=== PATIENT | female | born 1955 | race Caucasian/White ===

== ENCOUNTER → 2016-10-10 | Outpatient (CLI) | payer OTHER ==
[~2016-10-10] VITALS: Ht 167.6 cm; Wt 86.3 kg
[~2016-10-10] MED LIST: ACTONEL150 MG PO; ACTOPLUS MET 11 EAC1; ADVAIRDISKUS; AMITRIPTYLINE H75 M1 PO; DOXYCYCLINE 10100 M1 PO; FLEXERIL PO; GABAPENTIN100 MG PO; GLUCOPHAGE1000 MG PO; METFORMIN HCL500 MG PO; MOBIC15 MG PO; MS CONTIN15 MG PO; MS CONTIN30 MG PO; NEURONTIN 300300 M1 PO; NEXIUM40 MG PO; PERCOCET 5-3251 EACH PO; PREDNISONE 10 M10 MG PO; PRINZIDE 10-121 EACH PO; VITAMIN D 5050000 I1 PO; ZOLOFT100 MG PO; [UNRECOGNIZED DRUG - OTHER] PO
--- NOTE | ~2016-10-10 | HPC ---
[facility] [place] [address] PAIN MANAGEMENT CONSULTATION Name: BILLIE BROOKS Room #: REG [facility].#: [id number] Admission: 10/10/16 Attend Phys: Lloyd Cosme MD Discharge: Date of : 55 Report #: [id number] THIS REPORT FOR: //name// CC: Elisa Watts BURLAPPER David Cosme DATE OF SERVICE: 10/10/2016 FOLLOWUP COMPLAINT: "I am doing okay". FOLLOWUP HISTORY: The patient is a 61-year-old female who has been followed in the pain clinic because of chronic pain and failed back syndrome. She finds that her pain level is a 3. She still has quite a number of family members living with her. Her grandchild has . The child was a number of months old. He had a very rare genetic disease. Only 10 have been known to have this disease. Her son is still having some difficulty accepting this fact. PHYSICAL EXAMINATION: Blood pressure is 130/93, pulse 88, respiratory rate 16, room air saturation 96%. Height 5 feet 6 inches, weight is 86 kilograms. BMI is 30. The patient has not fallen since we saw her last. She continues to have pain and discomfort in her neck as well as pain and discomfort in the lower portion of her back with pain radiating down into her feet. She notes the pain is exacerbated by walking and prolonged standing. Finds that the pain is improved with use of music therapy as well as with lying down. She continues to smoke cigarettes. IMPRESSION: Chronic pain, status post failed back syndrome. RECOMMENDATIONS: We discussed treatment options with the patient. We will continue with her current medical regimen. Given that she has children in her home, she maintains her medications in a guarded place. She will continue to try and decrease her tobacco use. We will continue with her current medications. A script for her medications has been renewed. She will call us if she has any problems with her medications. We would like to thank you for letting us participate in her care. We hope she continues to improve. By: [id number] Lloyd Cosme MD /nt
[2016-10-10 10:21] VITALS: BP 130/93
== END | disposition home or self-care (01) ==
LOC: PAIN 09-30 09:45
DX: M96.1 Postlaminectomy syndrome, not elsewhere classified (principal); F11.20 Opioid dependence, uncomplicated; F17.210 Nicotine dependence, cigarettes, uncomplicated

== ENCOUNTER → 2017-01-07 | Outpatient (CLI) | payer OTHER ==
[~2017-01-07] VITALS: Ht 165.1 cm; Wt 88.0 kg
[~2017-01-07] MED LIST changes: +AMITRIPTYLINE H75 M2 PO
[2017-01-07 10:43] VITALS: BP 148/90
== END | disposition home or self-care (01) ==
LOC: PAIN 06:52
DX: G89.4 Chronic pain syndrome (principal); M96.1 Postlaminectomy syndrome, not elsewhere classified; F11.20 Opioid dependence, uncomplicated; F17.200 Nicotine dependence, unspecified, uncomplicated; Z79.899 Other long term (current) drug therapy

== ENCOUNTER → 2017-04-08 | Outpatient (CLI) | payer OTHER ==
[~2017-04-08] VITALS: Ht 165.1 cm; Wt 92.1 kg
--- NOTE | ~2017-04-08 | HPC ---
[facility] [place] [address] PAIN MANAGEMENT CONSULTATION Name: BILLIE BROOKS Room #: REG [facility].#: [id number] Admission: 04/08/17 Attend Phys: Lloyd Cosme MD Discharge: Date of : 55 Report #: [id number] THIS REPORT FOR: //name// CC: Elisa Watts MEDICAL PHOTOGRAPHER David Cosme DATE OF SERVICE: 04/08/2017 FOLLOWUP COMPLAINT: Here for medications. FOLLOWUP HISTORY: The patient is a 62-year-old female who has been followed in the pain clinic because of chronic pain associated with failed back syndrome. She rates her pain as a 6/10 today. Pain is worse with standing, walking and activities of daily living. She has been experiencing a new knife-like pain, which radiates into different locations. PHYSICAL EXAMINATION: VITAL SIGNS: Blood pressure 160/85, pulse 92, respiratory rate 14, room air saturation 94%. Height 5 feet 5 inches, weight 203 pounds, BMI is 33. The patient has not fallen since we saw her last. She continues to have pain and discomfort in her low back and down into her legs. As you recall she is status post failed back syndrome. IMPRESSION: Chronic pain, status post failed back syndrome. RECOMMENDATIONS: We will continue with her current medical regimen of MS Contin, Elavil and Percocet. A script for her medications have been written. She will follow up in the future as needed. She states that she continues to keep her medications in a controlled environment. By: [id number] Lloyd Cosme MD /PMT
[2017-04-08 10:52] VITALS: BP 160/85
== END | disposition home or self-care (01) ==
LOC: PAIN 07:20
DX: M96.1 Postlaminectomy syndrome, not elsewhere classified (principal); Z68.33 Body mass index [BMI] 33.0-33.9, adult; G89.29 Other chronic pain; F17.210 Nicotine dependence, cigarettes, uncomplicated

== ENCOUNTER → 2017-07-08 | Outpatient (CLI) | payer OTHER ==
[~2017-07-08] VITALS: Ht 165.1 cm; Wt 91.3 kg
[~2017-07-08] MED LIST changes: +GLIPIZIDE ER2.5 MG PO; +MEDROLDOSEPACK PO
--- NOTE | ~2017-07-08 | HPC ---
[facility] [place] [address] PAIN MANAGEMENT CONSULTATION Name: BILLIE BROOKS [id number] Admission: 07/08/17 Attend Phys: Lloyd Cosme MD Discharge: Date of : 55 Report #: [id number] THIS REPORT FOR: //name// CC: Elisa Cosme DATE OF SERVICE: 07/08/2017 FOLLOWUP COMPLAINT: "I am having some weakness in my right hand and I have weakness in my left hand." FOLLOWUP HISTORY: The patient is a 62-year-old female who has been followed in the pain clinic for quite a number of years. She suffers from failed back syndrome. She finds that opioid medications continue to be helpful. She is taking her medication as prescribed. She states that she is having some weakness in the right hand. She recalls trying to open a pop bottle; after turning the lid, she noticed a popping sensation in her right hand. Since that time, she has noticed that there is some weakness in this area. It is right in the wrist where most of the discomfort and weakness is. She also has some weakness in the left hand. She states that they have evaluated the problem in the antecubital area but it continues to be a problem. She continues to watch over her grandchildren. There are quite a number of them who live in her home. She states that she keeps her medications in a guarded area. We discussed the possible complications associated with opioid use and possibility of addiction and tolerance. PHYSICAL EXAMINATION: VITAL SIGNS: Blood pressure 147/79, pulse 80, respiratory rate 18, and room air saturation 94%. HEENT: Unremarkable. NECK: The patient states that she has had some surgeries on her neck in the past. EXTREMITIES: Complains of pain with discomfort radiating down in the left forearm with hyperesthesia. Also complains of some weakness in her right hand after trying to untighten the lid on a bottle of pop. The patient has noticed some swelling in the wrist area. Notes some discomfort in the area of the metatarsals between the index and middle finger. Palpation in this area can cause some soreness. The patient complains of some weakness in the left hand as well. 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 IMPRESSION: 1. Some pain in the right hand with weakness as well as pain in the left hand. 2. Use of tobacco. [facility] [address] [place] [address] PAIN MANAGEMENT CONSULTATION Name: BILLIE BROOKS Room #: REG [facility]#: [id number] Admission: 07/08/17 Attend Phys: Lloyd Cosme MD Discharge: Date of : 55 Report #: [id number] 3. Sleep apnea. 4. Chronic pain, status post failed back syndrome. 5. Cervical radicular pain, status post 3 neck surgeries - cervical fusion in 08/1996 and 08/1998. 6. History of osteomyelitis, low back area. RECOMMENDATIONS: We discussed treatment options with the patient. We discussed chronic tobacco use. She is no longer using oxygen at home. She continues to use a CPAP machine. We discussed the pathophysiology of COPD and the problems with chronic use of tobacco. We also discussed the use of opioid medications. Recommending that the patient keep her medications in a locked facility given that she has children at home. We discussed the use of a Medrol Dosepak to help with the pain in her right arm. Again, she feels that given the number of surgeries she has, cervical epidural steroid injections are not an option at this juncture. The patient will continue to work at decreasing use of tobacco. We would like to thank you for letting us participate in her care. We hope she continues to improve. <ELECTRONICALLY SIGNED> By: Lloyd Cosme MD 07/10/17 0806 [id number] Lloyd Cosme MD /[facility]
[2017-07-08 10:13] VITALS: BP 147/79
== END ==
LOC: PAIN 06:38
DX: G89.29 Other chronic pain (principal); M54.12 Radiculopathy, cervical region; M79.641 Pain in right hand; M79.642 Pain in left hand; F11.90 Opioid use, unspecified, uncomplicated; G47.33 Obstructive sleep apnea (adult) (pediatric); Z98.890 Other specified postprocedural states; Z87.39 Personal history of other diseases of the musculoskeletal system and connective tissue

== ENCOUNTER → 2017-10-07 | Outpatient (CLI) | payer OTHER ==
[~2017-10-07] VITALS: Ht 165.1 cm; Wt 87.1 kg
--- NOTE | ~2017-10-07 | HPC ---
[facility] [address] [place] [address] PAIN MANAGEMENT CONSULTATION Name: BILLIE BROOKS Room #: REG [facility].#: [id number] Admission: 10/07/17 Attend Phys: Lloyd Cosme MD Discharge: Date of : 55 Report #: [id number] THIS REPORT FOR: //name// CC: Elisa Watts SYSTEMS SPECIALIST David Cosme DATE OF SERVICE: 10/07/2017 FOLLOWUP COMPLAINT: Here for medication refills and the meds are working fine. He did not have any side effects. FOLLOWUP HISTORY: The patient is a 62-year-old female who has been followed in the pain clinic for quite a number of years. As you recall, she suffers from failed back syndrome. She has continued to have fine opioid medications helpful. She is taking the medication as prescribed. States that she keeps her medications locked up. She does have some grandchildren who live with her at home. She finds that these medications enable her to engage in activities of daily living. She is having some pain and discomfort on the left side. She was walking into her house. Her had placed an item and unforeseen area. She tripped. She fell and hit her shoulder as well as her left side. She is having some difficulty in lifting this her arm above her head. She states that she is going to see another 6 physician possibly a surgeon in regards to this. She notes that the pain is quite problematic. ALLERGIES: No known drug allergies. MEDICATIONS: Glyburide, glipizide 2.5 mg daily, metformin 500 mg b.i.d., Percocet 5/325 mg one p.o. q.4-6 hours p.r.n. pain, morphine ER (MS Contin 15 mg 1 p.o. at bedtime), amitriptyline 75 mg at bedtime, Nexium 40 mg. PAIN CLINIC ASSESSMENT: 1. The patient does have some arthritic changes in the lower portion of her back. She has had back surgery. 2. Height 5 feet 5 inches, weight 192 pounds, BMI is 32. 3. Vital signs: Blood pressure 126/80, pulse 85, respiratory rate 16, room air saturation is 95%. 4. Pain intensity. 5. In the right hand and two in the left arm. IMPRESSION: Fall risk. The patient fell while walking to her house. Her place an item and the unforeseen area. She tripped and fell on this. She has been using a walking cane. Blood thinner use. The patient does not [place] [address] PAIN MANAGEMENT CONSULTATION Name: BILLIE BROOKS Room #: REG [facility]#: [id number] Admission: 10/07/17 Attend Phys: Lloyd Cosme MD Discharge: Date of : 55 Report #: [id number] 1. History of hypertension. The patient is being treated for hypertension. 2. Opioid therapy. The patient does have an opioid contract, which she has signed with the pain clinic. 3. Risk assessment tool. 4. Functional assessment. 5. Recreational drug use, denies. 6. Tobacco: The patient is a current tobacco smoker and does continue to smoke. 5. Alcohol. Denies use of alcoholic beverages on a very basis. IMPRESSION 1. Pain in the left side after a fall at home injuring her left arm and left side. The patient is going to follow up with her physician for possible treatment of this. We discussed the possibility of frozen shoulder syndrome if she does not continue to increase range of motion of this lamina. 2. Tobacco use. We would recommend that the patient's decrease use of tobacco. 3. Sleep apnea. 4. Chronic pain status post failed back syndrome. 5. Cervical radicular pain status post 3 neck surgeries in the past with fusion and 2000 and fusion in 1996 and 1998. 6. History of osteomyelitis low back area. RECOMMENDATIONS: We discussed treatment options with the patient. We will continue with her current medication regimen. She will follow up with her orthopedic doctor regarding treatment for the left shoulder. We explained to her the need to get this joint in motion. The possibility of frozen shoulder definitely could develop. She also has smoking. We reminded her that decreasing smoking would be beneficial and possibly decrease some of the problems she is having it with her pain. The patient will continue use of her CPAP machine. She will call us if she has any problems with her medications. We would like to thank you for letting us participate in her care. We hope she continues to improve. By: [id number] Lloyd Cosme MD /REKHA
[2017-10-07 11:09] VITALS: BP 126/80
== END ==
LOC: PAIN 07:02
DX: M79.602 Pain in left arm (principal); F17.200 Nicotine dependence, unspecified, uncomplicated; G47.30 Sleep apnea, unspecified; G89.29 Other chronic pain; M54.12 Radiculopathy, cervical region

== ENCOUNTER → 2018-01-08 | Outpatient (CLI) | payer OTHER ==
[~2018-01-08] VITALS: Ht 165.1 cm; Wt 84.7 kg
--- NOTE | ~2018-01-08 | HPC ---
[facility] [place] [address] [place] [address] PAIN MANAGEMENT CONSULTATION Name: BILLIE BROOKS Room #: REG [facility].#: [id number] Admission: 01/08/18 Attend Phys: Lloyd Cosme MD Discharge: Date of : 55 Report #: [id number] THIS REPORT FOR: //name// CC: Elisa Cosme DATE OF SERVICE: 01/08/2018 FOLLOWUP COMPLAINT: Here for medication renewal. FOLLOWUP HISTORY: The patient is a 63-year-old female who has been followed in the pain clinic for quite a number of years. As you recall, she has failed back syndrome. Continues to have medications to help with her condition. Feels that her medications enable her to engage in activities, she would not be able to without their use. She is taking her medications as prescribed. She has had no complication from the medications themselves. Continues to smoke. She is still trying to decrease her smoking habit. Keeps her medications in a guarded area. Recently found a lesion on her pancreas and a cyst on her kidney. Continues with left shoulder, low back, right thigh, left leg, upper back and stomach discomfort. She rates her pain as a 4/10. ALLERGIES: No known drug allergies. MEDICATIONS: Glyburide 2.5 mg daily, metformin 500 mg b.i.d., Percocet 5/325 one p.o. q.4-6 hours., morphine ER 15 mg 1 at bedtime, amitriptyline 75 mg, Nexium 40 mg. PAIN CLINIC ASSESSMENT: 1. The patient does have some arthritic changes in the lower portion of her back. She has had back surgery. 2. Height 5 feet 5 inches, weight 186 pounds, BMI is 31.1. 3. Vital signs: Blood pressure 131/86, pulse 89, respiratory rate 16, room air saturation 96%. 4. Pain intensity 10/20. 5. Fall risk. The patient has not fallen in the last 3 months. The patient does walk with use of a crutch. 6. Blood thinner: The patient is not on a blood thinning medication. 7. History of hypertension. The patient is being treated for hypertension. 8. Opioid therapy greater than 6 weeks. The patient is on an opioid contract and gets her medication from one source. 9. Risk assessment tool. 10. Functional assessment tool. 11. Recreational drug use. The patient denies use of recreational drugs. 12. Tobacco: The patient continues to smoke 2 packs of cigarettes per day, has smoked [address] [place] [address] PAIN MANAGEMENT CONSULTATION Name: BILLIE BROOKS Room #: REG [facility]#: [id number] Admission: 01/08/18 Attend Phys: Lloyd Cosme MD Discharge: Date of : 55 Report #: [id number] 13. Alcohol use. Denies use of alcoholic beverages. PHYSICAL EXAMINATION: GENERAL: The patient is a well-developed white female, appears her stated age. She is alert and oriented x 3. Speech is fluent. HEENT: Normocephalic, atraumatic. Extraocular eye muscles intact. Sclerae nonicteric. Hearing within normal limits. NECK: Without adenopathy. HEART: Regular rate. LUNGS: Generally clear. Patient clears her throat and lungs with some decreased breath sounds in the lower lung carrasco. ABDOMEN: Protuberant. MUSCULOSKELETAL: Muscle strength in the upper extremity generally 5/5 for the major muscle groups in the upper extremity. Lower extremity muscle strength judged to be 5/5 for the major muscle groups. The patient walks with an antalgic gait. She leans somewhat to the right with her crutch in her right hand. Complains of low back pain. Rates it as a 4 while standing. IMPRESSION: 1. Chronic low back pain status post failed back syndrome. 2. History of hypertension. 3. Use of tobacco. 4. Sleep apnea. 5. Cervical radicular pain status post three surgeries in the past with fusion in 1999, 1998 and 1996. 6. History of osteomyelitis in low back area. 7. Possible frozen shoulder, left. RECOMMENDATIONS: We discussed treatment options with the patient. She feels that her medications are working reasonably well. She continues to keep them in a guarded area. She does have some young children in their area. She finds that the medications help her to stay active. She has taken the medication as prescribed. She is aware of the problems with opioid medications. She has watched the media interactions. She is aware that narcotics can cause addiction as well as tolerance. Overall, she feels that her medications are working reasonably well. She would like to continue their use. Does have pain in her left shoulder. Possible development of frozen shoulder. She will continue using her CPAP machine. She will call us if she has any problems with her medications. We would like to thank you for letting us participate in her care. We hope she continues to improve. By: [id number] Lloyd Cosme MD /silvia
[2018-01-08 10:48] VITALS: BP 131/86
== END ==
LOC: PAIN 07:13
DX: M54.5 Low back pain (principal); G89.29 Other chronic pain; M54.2 Cervicalgia; I10 Essential (primary) hypertension; G47.33 Obstructive sleep apnea (adult) (pediatric); F17.201 Nicotine dependence, unspecified, in remission

== ENCOUNTER → 2018-02-26 | Outpatient (CLI) | payer OTHER ==
[~2018-02-26] VITALS: Ht 165.1 cm; Wt 84.2 kg
[2018-02-26 12:36] VITALS: BP 146/100
== END ==
LOC: PAIN 07:20
DX: M54.2 Cervicalgia (principal); M54.5 Low back pain; M79.651 Pain in right thigh; G89.29 Other chronic pain; Z79.899 Other long term (current) drug therapy

== ENCOUNTER → 2018-04-07 | Outpatient (CLI) | payer OTHER ==
[~2018-04-07] VITALS: Ht 165.1 cm; Wt 86.2 kg
--- NOTE | ~2018-04-07 | HPC ---
[facility] [place] [address] PAIN MANAGEMENT CONSULTATION Name: BILLIE BROOKS Room #: REG [facility].#: [id number] Admission: 04/07/18 Attend Phys: Lloyd Cosme MD Discharge: Date of : 55 Report #: [id number] THIS REPORT FOR: //name// CC: Elisa Watts FOOD TASTER [place] Cosme DATE OF SERVICE: 04/07/2018 FOLLOWUP COMPLAINT: "The medications are working pretty well." FOLLOWUP HISTORY: The patient is a 63-year-old female who has been followed in the Pain Clinic for quite a number of years. As you know, she has chronic back pain. She has had failed back syndrome with continued pain. As you may recall, she has recently been diagnosed with a large mass at the head of her pancreas. It is thought to be pancreatic cancer. She has been undergoing therapy at this juncture. She is undergoing a special Treatment with a new device, which she states would hopefully kill some of the burgeoning cancer cells. Overall, she feels that things are going reasonably well with her pain medicines. We have started her on an elevated dose at the last visit. The patient was going to return to the Pain Clinic if her pain became more problematic. Overall, things are going reasonably well and we will write for medications for the next few months. ALLERGIES: No known drug allergies. CURRENT MEDICATIONS: OxyContin 5/325 one p.o. q. 4-6 hours p.r.n. pain, morphine sulfate 30 mg b.i.d., amitriptyline 75 mg at bedtime, metformin 500 mg, Nexium 40 mg daily. PAIN CLINIC ASSESSMENT/PQRS: 1. History of osteoarthritis: The patient has some arthritic changes in her lower back since surgery. She has not been treated for rheumatoid arthritis. 2. Height 5 feet 5 inches, weight 190 pounds, BMI is 31.6. 3. Vital signs: Blood pressure 155/93, pulse 76, respiratory rate 18, room air saturation 95%. 4. Pain intensity: 08/22. 5. Fall risk: The patient has not fallen in the last 3 months. The patient does walk with a cane. 6. Blood thinner: The patient is not on blood thinning medications at this juncture. 7. History of hypertension: The patient is being treated for hypertension. 8. Opioid therapy: The patient has received her medications through the Pain Clinic since 2015. 9. Risk assessment tool: [place] [address] PAIN MANAGEMENT CONSULTATION Name: BILLIE BROOKS Room #: REG [facility]#: [id number] Admission: 04/07/18 Attend Phys: Lloyd Cosme MD Discharge: Date of : 55 Report #: [id number] 10. Functional assessment tool. 11. Recreational drug use: The patient denies use of recreational drugs. 12. Tobacco: The patient continues to smoke heavily, approximately 2 packs per day and has smoked for 40 years. 13. Alcohol: The patient denies frequent use of alcoholic beverages. PHYSICAL EXAMINATION: GENERAL: The patient is a well-developed, well-nourished white female. Appears her stated age. She is slightly obese. She is awake, alert, and oriented x 3. HEENT: Normocephalic, atraumatic. Extraocular eye muscles intact. Sclerae nonicteric. Mucous membranes are moist. The patient has a headrest on. I think she is undergoing chemotherapy and beginning to loose some of her hair. NECK: Without adenopathy or JVD. ABDOMEN: The patient has a special mesh item on her abdominal area with an attachment to a computer of some sort. States that this helps to kill the pancreatic cells. MUSCULOSKELETAL: The patient has some discomfort in her shoulders. Low back pain continues to be problematic from her previous surgeries. The patient does walk with an antalgic gait. Muscle strength in the upper extremity judged to be 5-/5 for the major muscle groups. IMPRESSION: 1. Chronic back pain with most likely development of pancreatic cancer at the head of the pancreas. 2. History of pain in the left arm after a fall. 3. Chronic tobacco use. 4. Sleep apnea. 5. Chronic pain, status post failed back syndrome. 6. Cervical radiculopathy, status post 3 cervical surgeries in the past, fusion in 1999, fusion in 1996, and fusion in 1998. 7. History of osteomyelitis in the low back area. RECOMMENDATIONS: We discussed treatment options with the patient. At this juncture, she feels that her current medications are working reasonably well. We will continue with her medications. She will follow up with the Pain Clinic as needed. If her pain starts to become more problematic secondary to recurrence or worsening of her cancer, she will be reevaluated in the Pain Clinic. The patient may be a candidate for a celiac plexus block in the future should her pain become quite problematic. We would like to thank you for letting us participate in her care. We hope she continues to improve. <ELECTRONICALLY SIGNED> By: Lloyd Cosme MD 04/26/18 1124 [id number] Lloyd Cosme MD /nt
[2018-04-07 09:18] VITALS: BP 155/93
== END ==
LOC: PAIN 06:41
DX: M54.2 Cervicalgia (principal); M54.5 Low back pain; M25.512 Pain in left shoulder; G89.29 Other chronic pain; R10.9 Unspecified abdominal pain; M79.651 Pain in right thigh; Z79.899 Other long term (current) drug therapy

== ENCOUNTER → 2018-10-15 | Outpatient (CLI) | payer OTHER ==
[~2018-10-15] VITALS: Ht 165.1 cm; Wt 75.0 kg
[~2018-10-15] MED LIST changes: +LISINOPRIL10 MG PO; +MS CONTIN 30 MG30 M1 PO
[2018-10-15 10:05] VITALS: BP 149/91
[2018-10-15 10:07] VITALS: BP 149/91
--- NOTE | 2018-10-15 10:25 | NUR ---
Pain Clinic Assessment: 1. History of Osteoarthritis: Not Applicable History of Rheumatoid Arthritis: Not Applicable 2. Height: 5 ft. 5 in. 165.1 cm. Weight: 165.4 lb. oz. 75.025 kg. Patient's BMI: 27.5 3. Vital Signs: BP: 149/91 Pulse: 92 Resp: 16 Temp: 02 Sat: 96 ECG Mon: 4. Pain Intensity: 2 5. Fall Risk: Dizziness: N Needs help standing or walking: Y Fallen in the last 3 months: N Fall risk comments: 6. Patient on Blood Thinner: None 7. History of Hypertension: Y 8. Opioid Therapy greater than 6 weeks: Y Opiate Contract Signed: 12/31/15 9. Risk Assessment Tool Provided: Opioid Risk Tool 10. Functional Assessment Tool: 11. Recreational Drug Use: Never Drug Type: Tobacco Use: Current Every Day Smoker Tobacco Type: Amount or Packs/day: How Many Years: Alcohol Use: No Frequency: Quant:
--- NOTE | 2018-10-18 11:35 | HPC ---
[facility] [address] [place] [address] PAIN MANAGEMENT CONSULTATION Name: BILLIE BROOKS [facility] [id number] Admission: 10/15/18 ������������������ Attend Phys: Franchesca Granados Discharge: ������������������ Date of : 55 Report #: [id number] THIS REPORT FOR: //name// CC: Franchesca Granados Elisa Mac DATE OF SERVICE: 10/15/2018 CHIEF COMPLAINT: Failed back syndrome and pancreatic cancer. HISTORY OF PRESENT ILLNESS: This is a very pleasant 63-year-old female who returns to the pain clinic today for refill of her medication management. She tells me that she is currently undergoing radiation therapy. She has had 22 treatments and still has she thinks at least 7 left. She is unsure of the number. She tells me that she is feeling fairly good from that except that she is extremely tired. She is not having any nausea, vomiting, diarrhea. She tells me at this time she does not have her Novac[employer] device on that she was using for her treatment. She tells me when having that off she is having some increase in back pain. She is unsure why that does help, but she says that her back pain has increased since she has had that machine off. Her pain score today is 2/10 using her medications. Most of her pain is in her low back, but she does have pain in her shoulder and thighs and of course her stomach area from her cancer. She tells me walking, standing and eating make her pain worse. Medication, music therapy and lying down help relieve some of her medications. ALLERGIES: No known drug allergies. CURRENT LIST OF MEDICATIONS: Elavil 75 mg at bedtime, lisinopril 10 mg daily, oxycodone 5/325 p.r.n., morphine sulfate 30 mg b.i.d., metformin 500 mg b.i.d., Nexium 40 mg daily. PQRS: 1. She has a history of arthritic changes in her lower back. She is not being treated for rheumatoid arthritis. 2. Height is 5 feet 5 inches, weight is 165, BMI is 27. 3. Vital signs: Blood pressure 149/91, pulse is 92, respirations 16, oxygen sat is 96. 4. Pain score is 2/10. 5. The patient denies dizziness, does not need help walking or standing, has not fallen in the last 3 months. 6. The patient is not on any blood thinners. 7. She does take medicines for hypertension. 8. Opioid therapy is greater than 6 weeks; therefore, an opiate signed contract is in the chart. Her risk assessment tool is low. Her functional assessment is low as well. The patient denies any recreational drug use. She is a current smoker [place] [address] PAIN MANAGEMENT CONSULTATION Name: BILLIE BROOKS Room #: REG [facility].#: [id number] Admission: 10/15/18 ������������������ Attend Phys: Franchesca Granados Discharge: ������������������ Date of : 55 Report #: [id number] PHYSICAL EXAMINATION: GENERAL: This is a well-developed, well-nourished white female who appears her stated age. She is alert and orientated today. Today, she is wearing a turban on her head due to her loss of her hair. HEENT: Normocephalic, atraumatic. Extraocular eye muscles are intact. Mucous membranes are moist. ABDOMEN: She does complain of some tenderness and reddened area from when she had her treatment attached to her abdomen for her pancreatic cancer. She tells me this is slowly healing. MUSCULOSKELETAL: Complains of low back pain. She does have an antalgic gait with her walk. Her muscle strength in her upper extremities is 5/5 in all major muscle groups. Her lower extremity strength judged to be 4/5 in all major muscle groups and tone. ASSESSMENT: 1. Chronic back pain. 2. Pancreatic cancer with ongoing radiation treatment. 3. Chronic tobacco use. 4. Sleep apnea. 5. Chronic pain, status post failed back surgery. 6. Cervical radiculopathy, status post 3 cervical surgeries. 7. History of osteomyelitis in her lower back. We reviewed the fact that opiate medications are being used to provide analgesia adequate to support activities of daily living, not attempting to achieve a specific pain score on the 0-10 Visual Analog Scale. The current opiate medications are providing sufficient analgesia to allow the patient to participate in activities of daily living. The patient is not exhibiting any aberrant behavior suggestive of drug diversion. The patient is not having any adverse reactions to medications. The patient is not suffering from daytime somnolence or mental acuity changes. The patient is managing opiate-induced constipation with appropriate [id number] agents and dietary considerations. The patient was counseled on concern for caution with operating a motor vehicle while using opiate medications. A physical exam was performed and the patient's functional status was evaluated. All patients with back pain were advised against the bed rest greater than 4 days and were advised to return to normal activities. Pain score assessment was noted and the treatment plan was reviewed with the patient. All current medications, both prescribed and OTC were reviewed and reconciled on the electronic medical record. Tobacco screening was accomplished and smoking cessation was advised when indicated. BMI was noted and diet/exercise modification was recommended for all patients following outside normal parameters. [address] [place] [address] PAIN MANAGEMENT CONSULTATION Name: BILLIE BROOKS Room #: [facility]#: [id number] Admission: 10/15/18 ������������������ Attend Phys: Franchesca RENAE Granados Discharge: ������������������ Date of : 55 Report #: [id number] I reviewed with the patient today their responsibilities to safeguard prescription medications, reviewed their responsibility to utilize medications only as prescribed by the physician. They are to seek and receive pain medications only from 1 physician group ( [facility]). They are to use 1 pharmacy and keep the clinic informed if they change pharmacies. Their responsibilities include making followup visits in a timely fashion and to avoid abrupt discontinuation of medication usage. Their responsibilities further include bringing their medications (bottles from the pharmacy with residual pills) to the visit for possible confirmation of pill counts and the patient understands it is their responsibility to submit to random drug screens to ensure both that the medications prescribed are present, and that no other controlled substances are present. All prescriptions provided today were generated electronically. PLAN: 1. We discussed treatment options with the patient today. She tells me that she is doing reasonably well with her current medication regimen, still continues her cancer treatments, at this time it is radiation and having no side effects from her medications from her opioids that she is aware of. She denies any constipation issues or somnolence. 2. Scripts given today for MS Contin 30 mg b.i.d. and oxycodone 5/325, #120 as well as amitriptyline 75 mg 1 at bedtime. This places her at the 90 morphine milliequivalent per the CDC guidelines. Therefore we have given her 3 months of these medications. The patient is seen with Dr. Cosme today who collaborated care. The patient will return in 3 months' time. ��������������������������������������������� <ELECTRONICALLY SIGNED> ���������������������������������������� By: Franchesca Granados ��������������������������������������������� 10/18/18 1135 [id number] Franchesca Granados /nt
== END ==
LOC: PAIN 06:57
DX: M54.12 Radiculopathy, cervical region (principal); M54.5 Low back pain; G89.29 Other chronic pain; F17.200 Nicotine dependence, unspecified, uncomplicated; C25.9 Malignant neoplasm of pancreas, unspecified; G47.30 Sleep apnea, unspecified; Z87.39 Personal history of other diseases of the musculoskeletal system and connective tissue

== ENCOUNTER → 2019-01-21 | Outpatient (CLI) | payer OTHER ==
[~2019-01-21] VITALS: Ht 165.1 cm; Wt 69.1 kg
[~2019-01-21] MED LIST changes: +COMPAZINE10 MG PO; +ZOFRAN ODT4 MG DISSOLVE
--- NOTE | ~2019-01-21 | HPC ---
[facility] [place] [address] PAIN MANAGEMENT CONSULTATION Name: BILLIE BROOKS [facility] [id number] Admission: 01/21/19 ������������������ Attend Phys: Lloyd Cosme MD Discharge: ������������������ Date of : 55 Report #: [id number] THIS REPORT FOR: //name// CC: Elisa Cosme DATE OF SERVICE: 01/21/2019 CHIEF COMPLAINT: Here for medication renewal. My cancer has spread. HISTORY: The patient is a 64-year-old female, who has been followed in the pain clinic. As you may recall, she has been diagnosed with pancreatic cancer. She has undergone chemotherapy and radiation treatment. She states that the radiation treatment did not provide much help, her cancer has spread in spite of this. She is now undergoing chemotherapy with a IV infusion for a number of days per week. She is experiencing pain in her hips. She has been using a heating pad on the hip area to help control the pain. She has moved into a new house. As you may recall, she has a number of grandchildren that live with her. The children are living upstairs and she is downstairs. She states that overall that is a better living arrangement than that which she had before. She has hossein out of sitting and watching the birds, smoking her cigarettes, and feels that her pain medications continued to be of benefit. CURRENT MEDICATIONS: Oxycodone 5/325, morphine sulfate 30 mg b.i.d., metformin 500 mg b.i.d., Nexium 400 mg, lisinopril 10 mg daily, and infusion of chemotherapy agent. ALLERGIES: No known drug allergies. PAIN CLINIC ASSESSMENT AND PQRS: 1. The patient has history of osteoarthritic changes in her lower back. She has had back surgery. She is not being treated for rheumatoid arthritis. 2. Pain intensity is 3/10. 3. Fall risk. The patient has not fallen in the last 3 months. 4. Blood thinner. The patient is not on a blood thinning medication. 5. Hypertension. The patient is being treated for hypertension. 6. Opioids greater than 6 weeks. The patient receives her medication from one source, the pain clinic. 7. Risk assessment tool, low for opioid use. 8. Functional assessment tool. 9. Recreational drug use. The patient denies use of recreational drugs. 10. Tobacco: The patient continues to smoke cigarettes and gets great hossein out of this. She is not going to stop smoking at this juncture. 11. Alcohol: The patient denies use of alcoholic beverages. PHYSICAL EXAMINATION: [facility] [address] [place] [address] PAIN MANAGEMENT CONSULTATION Name: BILLIE BROOKS Room #: REG [facility]#: [id number] Admission: 01/21/19 ������������������ Attend Phys: Lloyd Cosme MD Discharge: ������������������ Date of : 55 Report #: [id number] GENERAL: The patient is a well-developed white female. She appears to have lost weight. She is alert and oriented x 3. Height is 5 feet 5 inches, weight is 152 pounds, and BMI is 25.4. VITAL SIGNS: Blood pressure is 146/88, pulse is 84, respiratory rate is 20, and saturation is 98%. HEENT: Normocephalic, atraumatic. Extraocular eye muscles intact. The patient is growing hair, it is about 2 inches long. ABDOMEN: The patient has some pain in the abdominal area as well as in the back. This is secondary to pancreatic cancer. MUSCULOSKELETAL: Strength is 4-/5 in the upper extremities. Lower extremity muscle strength is 4+/5. IMPRESSION: 1. Pancreatic cancer with ongoing radiation treatment, now substitution of chemo for radiation treatment. 2. Chronic back pain. 3. Chronic tobacco use. 4. Sleep apnea. 5. Chronic pain, status post failed back surgery. 6. Cervical radiculopathy, status post 3 cervical surgeries. 7. History of osteomyelitis in the lower back. RECOMMENDATIONS: We have discussed treatment options with the patient. At this juncture, she feels that things have gone as well as could be expected. She feels that her medications are helpful. She rates her pain as a 3/10. We have discussed the options with the patient. Should she need her medications increase, she should call us. Overall, she feels that things are going reasonably well with the amount that she is taking. She states that she is depressed. She states it is very difficult knowing that she is going to within the next few weeks. A script for her medications has been written. She will continue with the amitriptyline 75 mg 1 at bedtime, Percocet 5/325, 120 tablets 1 p.o. q.i.d., and MS Contin 30 mg b.i.d. The patient will call us if she has any concerns. We would like to thank you for letting us to participate in her care. We will continue ____ maintain control of her pain during her illness. ��������������������������������������������� ���������������������������������������� By: ��������������������������������������������� [id number] Lloyd Cosme MD /REKHA
[2019-01-21 10:59] VITALS: BP 146/88
--- NOTE | 2019-01-21 11:24 | NUR ---
Pain Clinic Assessment: 1. History of Osteoarthritis: Not Applicable History of Rheumatoid Arthritis: Not Applicable 2. Height: 5 ft. 5 in. 165.1 cm. Weight: 152.4 lb. oz. 69.128 kg. Patient's BMI: 25.4 3. Vital Signs: BP: 146/88 Pulse: 84 Resp: 20 Temp: 02 Sat: 98 ECG Mon: 4. Pain Intensity: 3 5. Fall Risk: Dizziness: Y Needs help standing or walking: Y Fallen in the last 3 months: N Fall risk comments: 6. Patient on Blood Thinner: None 7. History of Hypertension: Y 8. Opioid Therapy greater than 6 weeks: Y Opiate Contract Signed: 12/31/15 9. Risk Assessment Tool Provided: Opioid Risk Tool 10. Functional Assessment Tool: 11. Recreational Drug Use: Never Drug Type: Tobacco Use: Current Every Day Smoker Tobacco Type: Cigarettes Amount or Packs/day: 1 How Many Years: Alcohol Use: No Frequency: Quant:
== END ==
LOC: PAIN 06:44
DX: Z76.0 Encounter for issue of repeat prescription (principal); M54.12 Radiculopathy, cervical region; C25.9 Malignant neoplasm of pancreas, unspecified; G47.30 Sleep apnea, unspecified; I10 Essential (primary) hypertension; G89.29 Other chronic pain; Z79.891 Long term (current) use of opiate analgesic; Z79.899 Other long term (current) drug therapy; Z79.84 Long term (current) use of oral hypoglycemic drugs; Z72.0 Tobacco use

== ENCOUNTER → 2019-04-22 | Outpatient (CLI) | payer OTHER ==
[~2019-04-22] VITALS: Ht 165.1 cm; Wt 66.7 kg
[~2019-04-22] MED LIST changes: +K-DUR 20 MEQ T20 MEQ PO
--- NOTE | 2019-04-22 09:36 | NUR ---
Pain Clinic Assessment: 1. History of Osteoarthritis: SPINE History of Rheumatoid Arthritis: Not Applicable 2. Height: ft. in. cm. Weight: lb. oz. kg. Patient's BMI: 3. Vital Signs: BP: Pulse: Resp: Temp: 02 Sat: ECG Mon: 4. Pain Intensity: 2 5. Fall Risk: Dizziness: N Needs help standing or walking: N Fallen in the last 3 months: N Fall risk comments: 6. Patient on Blood Thinner: None 7. History of Hypertension: Y 8. Opioid Therapy greater than 6 weeks: Y Opiate Contract Signed: 12/31/15 9. Risk Assessment Tool Provided: 1-LOW 10. Functional Assessment Tool: 11. Recreational Drug Use: Never Drug Type: Tobacco Use: Current Every Day Smoker Tobacco Type: Cigarettes Amount or Packs/day: 1/2 PACK How Many Years: 30 Alcohol Use: No Frequency: Quant:
[2019-04-22 09:38] VITALS: BP 137/78
--- NOTE | 2019-04-22 10:24 | NUR ---
Pain Clinic Assessment: 1. History of Osteoarthritis: SPINE History of Rheumatoid Arthritis: Not Applicable 2. Height: 5 ft. 5 in. 165.1 cm. Weight: 147.0 lb. oz. 66.679 kg. Patient's BMI: 24.5 3. Vital Signs: BP: 137/78 Pulse: 106 Resp: 18 Temp: 02 Sat: 91 ECG Mon: 4. Pain Intensity: 2 5. Fall Risk: Dizziness: N Needs help standing or walking: N Fallen in the last 3 months: N Fall risk comments: 6. Patient on Blood Thinner: None 7. History of Hypertension: Y 8. Opioid Therapy greater than 6 weeks: Y Opiate Contract Signed: 12/31/15 9. Risk Assessment Tool Provided: 1-LOW 10. Functional Assessment Tool: 11. Recreational Drug Use: Never Drug Type: Tobacco Use: Current Every Day Smoker Tobacco Type: Cigarettes Amount or Packs/day: 1/2 PACK How Many Years: 30 Alcohol Use: No Frequency: Quant:
--- NOTE | 2019-05-04 09:44 | HPC ---
[facility] [place] [address] [place] [address] PAIN MANAGEMENT CONSULTATION Name: BILLIE BROOKS [facility] [id number] Admission: 04/22/19 Attend Phys: Lloyd Cosme MD Discharge: Date of : 55 Report #: [id number] THIS REPORT FOR: //name// CC: Elisa Cosme DATE OF SERVICE: 04/22/2019 CHIEF COMPLAINT: Here for medications. I am undergoing chemotherapy again. HISTORY: The patient is a 64-year-old female who has been followed in the pain clinic because of findings of pancreatic cancer. She has had some increased nausea as a result of the new onset of chemotherapy. She has pain in the posterior portion of her legs as well as some pain in the lower portion of her back. She rates her pain today as a 2/10. Notes that with walking, standing, lying down, and certain other activities she can notice some worsening of her pain. Feels that the current use of hydrocodone is helpful. She overall feels that things are going reasonably well. Her has had heart surgery. She is trying to coordinate her hospital visits and treatment with her 's. Does feel somewhat weaken because of the pain and chemotherapy. ALLERGIES: No known drug allergies. CURRENT MEDICATIONS: Oxycodone 5/325, morphine sulfate 30 mg b.i.d., metformin 500 mg b.i.d., Nexium, lisinopril 10 mg, infusion of chemotherapy, amitriptyline 75 mg at bedtime, Zofran 4 mg, and Compazine 10 mg t.i.d. PAIN CLINIC ASSESSMENT AND PQRS: 1. The patient has some osteoarthritic changes in her back. She is not being treated for rheumatoid arthritis. 2. Pain intensity is 2/10. 3. Height 5 feet 5 inches, weight 147 pounds, BMI is 24.5. 4. Vital signs: Pulse is 106, blood pressure 137/78, heart rate 18, room air saturation 91%. 5. Fall history: The patient has not fallen in the last 3 months. 6. Blood thinner. The patient is not on a blood thinning medication. 7. Hypertension. The patient is being treated for hypertension. 8. Opioids greater than 6 weeks. The patient received medication from one source, the pain clinic. 9. Risk assessment tool, low for opioid use. 10. Functional assessment tool . 11. Recreational drug use. The patient denies. 12. Tobacco: The patient continues to smoke one-half pack of cigarettes per day and has smoked for last 30 years. 13. Alcohol. The patient denies frequent use of alcoholic beverages. [address] [address] PAIN MANAGEMENT CONSULTATION Name: BILLIE BROOKS [facility] [id number] Admission: 04/22/19 Attend Phys: Lloyd Cosme MD Discharge: Date of : 55 Report #: [id number] PHYSICAL EXAMINATION: GENERAL: The patient is a well-developed, well-nourished white female. Appears to have lost weight since we saw her last. She is alert and oriented x 3. Her affect is appropriate. Speech is fluent. HEENT: Normocephalic, atraumatic. Extraocular eye muscles intact. Sclerae nonicteric. Mucous membranes are moist. HEART: Regular rate. ABDOMEN: The patient does have some abdominal pain that radiates from the front to the back because of pancreatic cancer. MUSCULOSKELETAL: Has pain and discomfort in the lower extremities. Muscle strength in the upper extremity is 4-/5 for the upper extremities and 4+/5 for the lower extremity. The patient is walking with a cane. IMPRESSION: 1. Pancreatic cancer with ongoing chemotherapy with nausea and vomiting. 2. Chronic back pain. 3. Chronic tobacco use. 4. Sleep apnea. 5. Chronic pain, status post failed back surgery. 6. Cervical radiculopathy, status post 3 cervical surgeries. 7. History of osteomyelitis in lower back. RECOMMENDATIONS: We discussed treatment options with the patient. At this juncture, we will continue with her medication. She feels that the medications are going reasonably well. She is undergoing chemotherapy again. Overall, she feels that things are going as well as they can at this juncture. A script for Percocet 5 mg one p.o. 4-6 hours p.r.n. has been rewritten. The patient will also continue with the morphine 30 mg 1 p.o. b.i.d. The patient will contact us should she note that her pain medications are not as efficacious. We would like to thank you for letting us participate in her care. Hopefully, she continues to do well. We hope her chemotherapy is effective. <ELECTRONICALLY SIGNED> By: Lloyd Cosme MD 05/04/19 0944 [id number] Lloyd Cosme MD /nt
== END ==
LOC: PAIN 06:38
DX: Z76.0 Encounter for issue of repeat prescription (principal); C25.7 Malignant neoplasm of other parts of pancreas; I10 Essential (primary) hypertension; G89.29 Other chronic pain; G47.30 Sleep apnea, unspecified; M86.8X7 Other osteomyelitis, ankle and foot; F17.200 Nicotine dependence, unspecified, uncomplicated; Z79.899 Other long term (current) drug therapy; Z79.84 Long term (current) use of oral hypoglycemic drugs; Z79.891 Long term (current) use of opiate analgesic

== ENCOUNTER → 2019-08-10 | Outpatient (CLI) | payer OTHER ==
[~2019-08-10] VITALS: Ht 165.1 cm; Wt 65.0 kg
[~2019-08-10] MED LIST changes: +DURAGESIC1 EAC4 TD; +DURAGESIC1 EAC5 TOP
[2019-08-10 10:01] VITALS: BP 162/102
--- NOTE | 2019-08-10 10:23 | NUR ---
Pain Clinic Assessment: 1. History of Osteoarthritis: SPINE History of Rheumatoid Arthritis: Not Applicable 2. Height: 5 ft. 5 in. 165.1 cm. Weight: 143.4 lb. oz. 65.046 kg. Patient's BMI: 23.9 3. Vital Signs: BP: 162/102 Pulse: 98 Resp: 14 Temp: 02 Sat: 98 ECG Mon: 4. Pain Intensity: 2 5. Fall Risk: Dizziness: Y Needs help standing or walking: Y Fallen in the last 3 months: N Fall risk comments: 6. Patient on Blood Thinner: None 7. History of Hypertension: Y 8. Opioid Therapy greater than 6 weeks: Y Opiate Contract Signed: 12/31/15 9. Risk Assessment Tool Provided: 1-LOW 10. Functional Assessment Tool: 11. Recreational Drug Use: Never Drug Type: Tobacco Use: Current Every Day Smoker Tobacco Type: Amount or Packs/day: How Many Years: Alcohol Use: No Frequency: Quant:
--- NOTE | 2019-08-10 10:47 | NUR ---
Pain Clinic Assessment: 1. History of Osteoarthritis: SPINE History of Rheumatoid Arthritis: Not Applicable 2. Height: 5 ft. 5 in. 165.1 cm. Weight: 143.4 lb. oz. 65.046 kg. Patient's BMI: 23.9 3. Vital Signs: BP: 162/102 Pulse: 98 Resp: 14 Temp: 02 Sat: 98 ECG Mon: 4. Pain Intensity: 6 5. Fall Risk: Dizziness: Y Needs help standing or walking: Y Fallen in the last 3 months: N Fall risk comments: 6. Patient on Blood Thinner: None 7. History of Hypertension: Y 8. Opioid Therapy greater than 6 weeks: Y Opiate Contract Signed: 12/31/15 9. Risk Assessment Tool Provided: 1-LOW 10. Functional Assessment Tool: 11. Recreational Drug Use: Never Drug Type: Tobacco Use: Current Every Day Smoker Tobacco Type: Amount or Packs/day: How Many Years: Alcohol Use: No Frequency: Quant:
--- NOTE | 2019-08-11 08:44 | HPC ---
[facility] [address] [place] [address] PAIN MANAGEMENT CONSULTATION Name: BILLIE BROOKS [id number] Admission: 08/10/19 Attend Phys: Franchesca Granados Discharge: Date of : 55 Report #: [id number] THIS REPORT FOR: //name// CC: Franchesca Garcia DATE OF SERVICE: 08/10/2019 CHIEF COMPLAINT: Pancreatic cancer. HISTORY OF PRESENT ILLNESS: This is a very pleasant 64-year-old female who returns to the pain clinic today to discuss her pain medications. She reports her pain score is 6/10. It is located in her lower back and legs, but also on her right abdomen. She feels a chronic pressure. She reports that her pain is worse with activity. She feels that the medication now that she currently on has been helpful. She recently started a fentanyl patch 25 mcg from her oncologist as well as she has been continuing her morphine sulfate 30 mg tablets and occasionally will take an oxycodone if needed. The patient does report she continues chemotherapy and it is currently infusing today, but she does tell us that if this is not effective in decreasing her tumor, they are going to try one other chemotherapy medication and if that is not successful, then she believes that she will start hospice care. Today, she is here to discuss her pain control. ALLERGIES: No known drug allergies. CURRENT LIST OF MEDICATIONS: Fentanyl patch 25 mcg, oxycodone p.r.n., MS Contin 30 mg b.i.d., amitriptyline 75 mg at bedtime, potassium, Zofran, Compazine, lisinopril, Glucophage, and Nexium. PQRS: 1. She has osteoarthritis in her spine. Denies any rheumatoid arthritis. 2. Height is 5 feet 5 inches, weight is 143, BMI is 23. 3. Vital signs 162/102, blood pressure 162/102, pulse is 98, respirations 14, oxygen sat is 98. 4. Pain score is 6/10. 5. Denies any falls. She does have some dizziness and does use assistance with a cane for walking. 6. The patient is not on any blood thinners, but does take medicine for hypertension. Opioid therapy is greater than 6 weeks; therefore, an opioid signed contract is on the chart. Risk assessment is low. Functional assessment is 33/70. 7. Recreational drug use, she denies. She is a current tobacco smoker and [place] [address] PAIN MANAGEMENT CONSULTATION Name: BILLIE BROOKS Room #: [facility].#: [id number] Admission: 08/10/19 Attend Phys: Franchesca Granados Discharge: Date of : 55 Report #: [id number] According to the prescription monitoring system, currently, she has a fentanyl patch and her morphine. Her current morphine mEq with this dosage is 120 MME per day without her supplemental oxycodone. She does not take that on a daily basis. PHYSICAL EXAMINATION: GENERAL: This is alert and orientated 64-year-old female who appears her stated age. Her speech is appropriate. HEENT: Normocephalic, atraumatic. Extraocular eye muscles are intact. Mucous membranes are slightly dry. ABDOMEN: She has abdominal pain that radiates from her left abdomen to her back. She does complain of back pain as well. MUSCULOSKELETAL: She has pain and discomfort in her lower extremities. She uses a cane for ambulation. She is deconditioned in her lower extremities of 4/5. The patient does have a port for chemotherapy in her left chest wall. IMPRESSION: 1. Pancreatic cancer with ongoing chemotherapy and nausea and vomiting. 2. Chronic back pain. 3. Chronic tobacco use. 4. Chronic pain, status post failed back surgery. 5. Cervical radiculopathy, status post 3 cervical surgeries. 6. History of osteomyelitis. 7. Sleep apnea. We reviewed the fact that opiate medications are being used to provide analgesia adequate to support activities of daily living, not attempting to achieve a specific pain score on the 0-10 Visual Analog Scale. The current opiate medications are providing sufficient analgesia to allow the patient to participate in activities of daily living. The patient is not exhibiting any aberrant behavior suggestive of drug diversion. The patient is not having any adverse reactions to medications. The patient is not suffering from daytime somnolence or mental acuity changes. The patient is managing opiate-induced constipation with appropriate [id number] agents and dietary considerations. The patient was counseled on concern for caution with operating a motor vehicle while using opiate medications. A physical exam was performed and the patient's functional status was evaluated. All patients with back pain were advised against the bed rest greater than 4 days and were advised to return to normal activities. Pain score assessment was noted and the treatment plan was reviewed with the patient. All current medications, both prescribed and OTC were reviewed and reconciled on the electronic medical record. Tobacco screening was accomplished and smoking cessation was advised when indicated. BMI was noted and diet/exercise modification was recommended for all patients following outside normal [facility] [address] [place] [address] PAIN MANAGEMENT CONSULTATION Name: BILLIE BROOKS Room #: REG CLI Ayana#: [id number] Admission: 08/10/19 Attend Phys: Franchesca Granados Discharge: Date of : 55 Report #: [id number] parameters. I reviewed with the patient today their responsibilities to safeguard prescription medications, reviewed their responsibility to utilize medications only as prescribed by the physician. They are to seek and receive pain medications only from 1 physician group ( [facility]). They are to use 1 pharmacy and keep the clinic informed if they change pharmacies. Their responsibilities include making followup visits in a timely fashion and to avoid abrupt discontinuation of medication usage. Their responsibilities further include bringing their medications (bottles from the pharmacy with residual pills) to the visit for possible confirmation of pill counts and the patient understands it is their responsibility to submit to random drug screens to ensure both that the medications prescribed are present, and that no other controlled substances are present. All prescriptions provided today were generated electronically. PLAN: 1. We discussed treatment options with the patient today. The patient recently received a fentanyl patch script from her oncologist. We will inform the oncologist that we are increasing her fentanyl patch and destroying her prescription that she received for her second fill from him. We will stop her MS Contin converting this to a fentanyl patch. I believe that a 50 mcg patch will be beneficial in controlling her pain, it will be equal equivalent dosing to what she is currently on, I believe the transdermal route will help if she is not able to tolerate any pills due to her nausea and vomiting from her chemotherapy. The patient is agreeable with this plan of care. 2. We instructed the patient to change her Duragesic patch today, placing two 25 mcg patches on that she has at home. We will possibly do a prior authorization for her 50 mcg patch that she may black pickler them this weekend. The patient may continue her breakthrough oxycodone as needed. Scripts given today. 3. Scripts given for fentanyl 50 mcg, #10 for 3 months and oxycodone 5/325, #120 for a total of 3 months as well as amitriptyline 75 mg, #30 with 2 additional refills. 4. The patient is seen in collaboration with Dr. Cosme who did see the patient today as well. <ELECTRONICALLY SIGNED> By: Franchesca Granados 08/11/19 [id number] Franchesca Granados /nt
== END ==
LOC: PAIN 09:38
DX: Z76.0 Encounter for issue of repeat prescription (principal); C25.9 Malignant neoplasm of pancreas, unspecified; T45.1X5A Adverse effect of antineoplastic and immunosuppressive drugs, initial encounter; R11.2 Nausea with vomiting, unspecified; G89.29 Other chronic pain; M54.12 Radiculopathy, cervical region; M86.8X7 Other osteomyelitis, ankle and foot; G47.30 Sleep apnea, unspecified; F17.200 Nicotine dependence, unspecified, uncomplicated; Y92.89 Other specified places as the place of occurrence of the external cause